=== PATIENT | female | born 1970 | race Two or more races ===

== ENCOUNTER 2017-04-17 10:59 | Emergency (ER) | payer SELFPAY ==
[~2017-04-17] VITALS: Ht 165.1 cm; Wt 75.0 kg
[~2017-04-17 10:59] MED LIST: PREN-88 PO
[2017-04-17] MEDS ORDERED: KETOROLAC 60MG/2ML VIAL IM ONE (11:45)
[2017-04-17 11:58] VITALS: BP 133/82
== END 2017-04-17 13:37 | disposition home or self-care (01) ==
LOC: ER 11:50
DX: M25.562 Pain in left knee (principal); M54.5 Low back pain; G43.909 Migraine, unspecified, not intractable, without status migrainosus; W18.30XA Fall on same level, unspecified, initial encounter; Y93.89 Activity, other specified; Y92.89 Other specified places as the place of occurrence of the external cause; Y99.0 Civilian activity done for income or pay
CPT/HCPCS: 73560; 81025; 96372; 99284; J1885

== ENCOUNTER 2018-02-03 10:28 | Emergency (ER) | payer MEDICAID ==
[~2018-02-03] VITALS: Ht 160 cm; Wt 68.0 kg
[2018-02-03] MEDS ORDERED: IBUPROFEN 800MG TABLET PO ONE (12:15)
[2018-02-03 12:20] VITALS: BP_SYST 145
== END 2018-02-03 13:39 | disposition home or self-care (01) ==
LOC: ER 11:21
DX: J06.9 Acute upper respiratory infection, unspecified (principal); M79.1 Myalgia
CPT/HCPCS: 71045; 87804; 99285

== ENCOUNTER 2018-02-22 07:48 | Emergency (ER) | payer MEDICAID ==
[~2018-02-22] VITALS: Ht 162.6 cm; Wt 66.0 kg
[2018-02-22] MEDS ORDERED: SODIUM CHLORIDE 0.9% 1,000 ML IV ONE (08:42)
[2018-02-22] MEDS ORDERED: KETOROLAC 30MG/ML VIAL IV STA (08:42)
[2018-02-22] MEDS ORDERED: SUMATRIPTAN SUCCINATE 6MG/0.5ML VIAL SUBCUT ONE (08:45)
[2018-02-22] MEDS ORDERED: METOCLOPRAMIDE HCL 10MG/2ML VIAL IV ONE (08:45)
[2018-02-22 09:46] VITALS: BP 150/75
== END 2018-02-22 09:59 | disposition home or self-care (01) ==
LOC: ER 08:44
DX: G43.909 Migraine, unspecified, not intractable, without status migrainosus (principal); R03.0 Elevated blood-pressure reading, without diagnosis of hypertension
CPT/HCPCS: 96372; 96374; 96375; 99284; J1885; J2765; J3030; J7030